=== PATIENT | female | born 1985 | race Caucasian/White ===

== ENCOUNTER 2024-03-15 12:27 | Outpatient (REF) | payer BC, SELFPAY ==
--- NOTE | 2024-03-15 08:30 | PAPFT_PTH ---
PATIENT: Daly Bennett LOC: [facility] U#:[id number] AGE/SX: 38/F ROOM: RE03/15/[address]: Khushi Burnett : 1985 BED: DIS: 03/15/2024 SPEC #: [id number] RECD: 03/18/24 13:10 STATUS: SIRENA REQ #: [id number] SISSY: 03/15/24 08:[address]: Khushi Burnett DEPT: COUNT INCLUDES THE [facility] Cytology RECD BY: Tory Fuller ENTERED: 03/18/24 13:10 SP TYPE: PAPFT OTHR DR: Unknown,Unknown Tissues: 1 - CX/ENDOCX FOR PAP SMEARS Procedures: PAP THIN PREP/[facility] Screening HPV DNA PROBE Comments: [id number] (HPV 16 & 18/45)
== END 2024-03-15 12:28 | disposition home or self-care (01) ==
LOC: NCHCN 12:27
PROVIDERS: Visit Provider Family Medicine
DX: Z11.51 Encounter for screening for human papillomavirus (HPV) (principal); Z01.419 Encounter for gynecological examination (general) (routine) without abnormal findings
CPT/HCPCS: 88142; 87624

== ENCOUNTER 2025-02-24 21:24 | Outpatient (REF) | payer BC, SELFPAY ==
[2025-02-24 22:00] LABS: HCT 38.7 % (36.0-46.0); HGB 12.8 g/dL (11.2-15.7); MCH 32.7 pg (27.0-33.0); MCHC 33.1 % (32.0-36.0); MCV 99 fL (80-95); MPV 11.0 fL (8.0-11.0); Platelet Count 223 10^3/uL (130-400); RBC 3.92 10^6/uL (3.93-5.22); RDW 12.9 % (11.7-14.6); RDW-SD 46.5 fL; WBC 5.60 10^3/uL (4.4-10.8)
[2025-02-24 22:17] LABS: TSH (W/Ref FT4) 2.90 uIU/mL (0.55-4.78)
[2025-02-24 22:21] LABS: Cholesterol 196 mg/dL (<200); HDL Cholesterol 75 mg/dL (>40)
[2025-02-24 22:26] LABS: Hemoglobin A1C 5.2 % (<5.7)
== END 2025-02-24 21:25 | disposition home or self-care (01) ==
LOC: NCHCN 21:24
PROVIDERS: Visit Provider Family Medicine
DX: Z13.220 Encounter for screening for lipoid disorders (principal); F41.8 Other specified anxiety disorders; Z13.1 Encounter for screening for diabetes mellitus; Z13.0 Encounter for screening for diseases of the blood and blood-forming organs and certain disorders involving the immune mechanism
CPT/HCPCS: 80061; 85027; 83036; 84443